=== PATIENT | female | born 1995 | race Caucasian/White ===

== ENCOUNTER 2017-09-29 14:58 | Emergency (ER) | payer BC, OTHER ==
[2017-09-29] MEDS ORDERED: DOXYcycline CAP(*) 100 MG PO ONE (16:49)
[2017-09-29] MEDS ORDERED: Ibuprofen TAB* 800 MG PO ONE (16:49)
--- NOTE | 2017-09-29 16:52 | ED ---
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 She was in the ocean while on vacation in [place] when she felt a sharp poke near her right 1st MTP joint. She got out of the water immediately and noticed an opening in her skin that was comparable to that of a stingray bite. She also had burning pain in the dorsum of her foot which improved with submersion in to warm water. She was seen at a walk-in clinic in [place] at the time and prescribed Benadryl and ibuprofen which alleviated her symptoms. She's had some subtle irritation/ redness in this area since however has not been continuing antihistamines or anti-inflammatories. She did get a tetanus vaccine the following day and denies muscle stiffness, trouble breathing, wheezing/stridor, facial swelling, fevers, chills, nausea, vomiting, joint stiffness, lethargy. Since she her return to [place], she is wearing fully enclosing shoes which do seem to irritate her foot more and admits she drank more alcohol last night than she usually does. Today her foot is more red and swollen then it has been since injury. Does not have a FB sensation and wound was checked for this at time of injury as well. - History of Current Complaint Chief Complaint: EDExtremityLower Stated Complaint: RT FOOT SWELLING Time Seen by Provider: 09/29/17 15:52 Hx Obtained From: Patient Pain Intensity: 1 - Allergies/Home Medications Allergies/Adverse Reactions: Allergies Allergy/AdvReac Type Severity Reaction Status Date / Time No Known Allergies Allergy Verified 09/29/17 15:06 Home Medications: Home Medications Levonorgestrel-Ethin Estradiol [Levonorgestrel/Ethinyl Es] 1 tab PO DAILY [History Confirmed 09/29/17] PMH/Surg Hx/FS Hx/Imm Hx Previously Healthy: Yes Endocrine/Hematology History: Denies: Hx Diabetes, Autoimmune Disease - Immunization History Immunizations Up to Date: Yes Infectious Disease History: No Infectious Disease History: Denies: Hx of Known/Suspected MRSA, Traveled Outside the [place] in Last 30 Days - Family History Known Family History: Positive: None - Social History Occupation: Student Lives: Dormitory/Roommates Alcohol Use: Occasionally Hx Substance Use: No Substance Use Type: Reports: None Hx Tobacco Use: No Smoking Status (MU): Never Smoked Tobacco Review of Systems Constitutional: Negative Negative: Fever, Chills, Fatigue Eyes: Negative ENT: Other - no facial swelling Negative: Sore Throat Negative: Chest Pain Negative: Shortness Of Breath Negative: Vomiting, Nausea Genitourinary: Negative Positive: Edema. Negative: Arthralgia, Myalgia, Decreased ROM Skin: Other - redness Neurological: Negative Psychological: Normal All Other Systems Reviewed And Are Negative: Yes Physical Exam Triage Information Reviewed: Yes Vital Signs On Initial Exam: Initial Vitals Temp Pulse Resp BP Pulse Ox 98.5 F 75 16 116/84 99 09/29/17 15:03 09/29/17 15:03 09/29/17 15:03 09/29/17 15:03 09/29/17 15:03 Vital Signs Reviewed: Yes Appearance: Positive: Well-Appearing, No Pain Distress, Well-Nourished Skin: Positive: Warm, Skin Color Reflects Adequate Perfusion, Dry - Right dorsal foot with erythema, edema and warmth compared to left - these findings are confined to the distal two thirds of the foot. There is a 2 mm area of scabbing over dorsal great toe which patient reports his source of injury - no foreign body observed within this area and does not appear to have abscess collection understated scab; mild tenderness to palpation; no streaking, no vesicles, no ecchymosis Head/Face: Positive: Normal Head/Face Inspection Eyes: Positive: EOMI ENT: Positive: Hearing grossly normal, Pharynx normal - mucosa moist Respiratory/Lung Sounds: Positive: Breath Sounds Present. Negative: Stridor, Wheezes Cardiovascular: Positive: Normal, Pulses are Symmetrical in both Upper and Lower Extremities Musculoskeletal: Positive: Normal, Strength/ROM Intact Neurological: Positive: Normal, Sensory/Motor Intact, Alert, Oriented to Person Place, Time, CN Intact II-III Psychiatric: Positive: Normal Diagnostics - Vital Signs Vital Signs Temp Pulse Resp BP Pulse Ox 09/29/17 16:00 63 104/52 100 09/29/17 15:30 70 98 09/29/17 15:03 98.5 F 75 16 116/84 99 - Laboratory Lab Statement: Any lab studies that have been ordered have been reviewed, and results considered in the medical decision making process. Lower Extremity Course/Dx - Course Course Of Treatment: Although specific animal, plants or insect is unidentifiable as patient's source of injury, there is eyes suspicion for a stingray injury. Patient was seen initially in the area was cleaned. She is also up-to-date on her tetanus and admits she's not been taking ibuprofen or Benadryl as she did the first day which helped a great deal. Discussed she may reinstate ibuprofen and Benadryl as well as improving her efforts at elevation and not wearing confining shoes/creating friction in this area. Will also cover with an antibiotic for cellulitis caused by MRSA and vibrio. Patient agrees with plan and will follow up closely with [facility]. Review danger signs and symptoms of when to return to the emergency department. - Diagnoses Provider Diagnoses: Marine animal sting, Cellulitis of right foot Discharge - Sign-Out/Discharge Documenting (check all that apply): Discharge - Discharge Plan Condition: Stable Disposition: HOME Prescriptions: DOXYcycline CAP(*) [DOXYcycline 100MG CAP(*)] 100 mg PO BID #14 cap Patient Education Materials: Cellulitis (ED), Insect Bite or Sting (ED) Referrals: [facility] [place] [Primary Care Provider] - Additional Instructions: You appear to have cellulitis of your foot possibly caused by an animal sting or bite. This will be treated with an antibiotic which was sent to your pharmacy. Please complete the course. You may also try warm Epsom salt compresses or soaks and remove scab if it loosens to assist in drainage of wound if it becomes swollen and squishy - if purulent drainage is within the area, feel free to press this out after soak and cover with a wound dressing such as a Band-Aid. For itching, you may try Benadryl 25 mg every 4 hours as needed but note this will make you somewhat drowsy. You may take up to 50 mg of Benadryl before bed if the itchiness and swelling are interfering with sleep. Furthermore, for pain and swelling you may take ibuprofen 600 mg every 6 hours with food. Elevate leg and try to avoid prolonged sitting or standing as well as tight fitting socks or shoes. Follow up with [facility] in the next 3-4 days to re-evaluate this area. Call tomorrow to schedule an appointment. *If in the meantime you develop streaking, fever, fatigue, nausea with vomiting , joint stiffness, return to the emergency department. - Billing Disposition and Condition Condition: STABLE Disposition: HOME
[2017-09-29 17:22] VITALS: BP 108/42
== END 2017-09-29 17:26 | disposition home or self-care (01) ==
LOC: ED 14:58
DX: L03.115 Cellulitis of right lower limb (principal); W56.81XA Bitten by other nonvenomous marine animals, initial encounter; Y92.9 Unspecified place or not applicable
CPT/HCPCS: 99282; A9270-GY